=== PATIENT | female | born 2000 | race Caucasian/White ===

== ENCOUNTER 2020-05-08 15:43 | Outpatient (REF) | payer OTHER, SELFPAY | END 2020-05-08 15:44 | disposition home or self-care (01) | LOC: HO.LAB 15:43 | PROVIDERS: Visit Provider Internal Medicine | DX: Z11.52 Encounter for screening for COVID-19 (principal) | CPT/HCPCS: 36415; C9803; U0003; U0005 ==

== ENCOUNTER 2020-05-09 17:21 | Emergency (ER) | payer OTHER, SELFPAY | END 2020-05-09 18:38 | disposition left against medical advice (07) | PROVIDERS: Emergency Provider Emergency Medicine Emergency Medical Services | DX: Z20.822 Contact with and (suspected) exposure to COVID-19 (principal) ==